=== PATIENT | female | born 1995 | race Caucasian/White ===

== ENCOUNTER 2019-08-05 20:56 | Emergency (ER) | payer OTHER ==
[2019-08-05 21:08] VITALS: BP 137/78
[2019-08-05] MEDS ORDERED: BENZONATATE 100 MG CAPSULE PO STA (22:33)
--- NOTE | 2019-08-05 22:33 | ED Physician Documentation ---
History of Present Illness - Stated complaint Stated Complaint: COUGH, CONGESTION - Chief complaint Chief Complaint: Heent - History obtained from History obtained from: Patient (Patient is a 24-year-old female who presents with a 6-day history of cough, runny nose, sore throat and chest congestion without fever she tried taking Mucinex but it has not resolved she is AD [facility] and has follow-up appointment tomorrow.She denies headache, neck pain, fevers or rashes.) Review of Systems Constitutional: reports: Reviewed and negative Eyes: reports: Reviewed and negative Ears: reports: Reviewed and negative Nose: reports: Rhinorrhea / runny nose Throat: reports: Reviewed and negative Cardiac: reports: Reviewed and negative Respiratory: reports: Cough GI: reports: Reviewed and negative : reports: Reviewed and negative Skin: reports: Reviewed and negative Musculoskeletal: reports: Reviewed and negative Neurologic: reports: Reviewed and negative Psychiatric: reports: Reviewed and negative Endocrine: reports: Reviewed and negative Immunocompromised: reports: Reviewed and negative PD PAST MEDICAL HISTORY - Present Medications Home Medications: Ambulatory Orders Medication Instructions Recorded Confirmed Benzonatate [Tessalon Perle] 100 mg PO BID PRN #7 capsule 08/05/19 - Allergies Allergies/Adverse Reactions: Allergies Allergy/AdvReac Type Severity Reaction Status Date / Time Sulfa (Sulfonamide Allergy Rash Verified 08/05/19 21:03 Antibiotics) PD ED PE NORMAL - Vitals Vital signs reviewed: Yes - General General: Alert and oriented X 3, No acute distress, Well developed/nourished - HEENT HEENT: Atraumatic, PERRL, EOMI, Ears normal, Moist mucous membranes, Pharynx benign, Dentition benign - Neck Neck: Supple, no meningeal sign, No adenopathy - Cardiac Cardiac: RRR, No murmur, Strong equal pulses - Respiratory Respiratory: No respiratory distress, Clear bilaterally - Abdomen Abdomen: Normal bowel sounds, Soft, Non tender, Non distended, No organomegaly - Back Back: No CVA TTP, No spinal TTP - Derm Derm: Normal color, Warm and dry, No rash - Extremities Extremities: No deformity, No tenderness to palpate, Normal ROM s pain, No edema, No calf tenderness / cord - Neuro Neuro: Alert and oriented X 3, 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, No motor deficit, No sensory deficit, Normal speech - Psych Psych: Normal mood, Normal affect Results - Vitals Vitals: Vital Signs - 24 hr 08/05/19 21:03 Temperature 37.4 C Heart Rate 89 Respiratory 14 Rate Blood Pressure 137/78 H O2 Saturation 99 Oxygen O2 Source Room air PD MEDICAL DECISION MAKING - ED course Complexity details: considered differential (viral syndrome, afebrile, exam unremarkable) Departure - Departure Disposition: Home, Self Care Condition: Stable Instructions: ED Viral Syndrome Follow-Up: AMANDO ONEAL MD [Primary Care Provider] - Tomorrow Prescriptions: Benzonatate [Tessalon Perle] 100 mg PO BID PRN #7 capsule PRN Reason: Cough
== END 2019-08-05 22:47 | disposition home or self-care (01) ==
LOC: ED 20:56
DX: B34.9 Viral infection, unspecified (principal)
CPT/HCPCS: 99282; 99284; A9270